=== PATIENT | female | born 1965 | race Hispanic/Latino ===

== ENCOUNTER 2021-05-29 03:15 | Emergency (ER) | payer BC ==
[~2021-05-29] VITALS: Ht 157.5 cm; Wt 83.9 kg
[2021-05-29] MEDS ORDERED: ORPHENADRINE CITRATE 30 MG/ML VIAL IM ONE (03:30)
[2021-05-29] MEDS ORDERED: DEXAMETHASONE SOD PHOS 10 MG/1 ML VIAL IM ONE (03:30)
[2021-05-29] MEDS ORDERED: ORPHENADRINE CITRATE 30 MG/ML VIAL ONE (03:39)
[2021-05-29] MEDS ORDERED: DEXAMETHASONE SOD PHOS 10 MG/1 ML VIAL ONE (03:39)
== END 2021-05-29 04:20 | disposition home or self-care (01) ==
LOC: ER 03:21
DX: M54.31 Sciatica, right side (principal); I25.10 Atherosclerotic heart disease of native coronary artery without angina pectoris; I25.2 Old myocardial infarction; Z95.5 Presence of coronary angioplasty implant and graft
CPT/HCPCS: 99282; J1100; J2360

== ENCOUNTER → 2022-10-24 | Outpatient (CLI) | payer BC ==
[2022-10-19 09:19] LABS: BASOPHILS % 0.4 % (0.0-1.0); EOSINOPHILS # (AUTO) 0.3 (0.0-0.4); EOSINOPHILS % 3.3 % (0.0-6.0); HEMATOCRIT 35.3 % (34.2-44.1); HEMOGLOBIN 11.1 g/dL (12.0-16.0); LYMPHOCYTES # (AUTO) 1.3 (1.0-3.2); LYMPHOCYTES % 16.8 % (18.0-39.1); MEAN CORPUSCULAR HEMOGLOBIN 31.7 pg (28-32); MEAN CORPUSCULAR HGB CONC 31.4 g/dL (31-35); MEAN CORPUSCULAR VOLUME 100.9 fL (81-99); MONOCYTES # (AUTO) 0.6 (0.2-0.8); MONOCYTES % 6.9 % (4.4-11.3); NEUTROPHILS # (AUTO) 5.8 (2.1-6.9); NEUTROPHILS % 72.3 % (38.7-80.0); PLATELET COUNT 338 x10e3/uL (140-360); RED CELL DISTRIBUTION WIDTH 13.6 % (11.7-14.4)
[~2022-10-24] MED LIST: ASPIRIN EC81 MG PO; CRESTOR10 MG PO; EFFIENT10 MG PO; LEVOTHYROXINE50 MCG PO; LISINOPRIL5 MG PO; METOPROLOL SUCC25 MG PO; WELLBUTRIN SR150 MG PO; ZETIA10 MG PO
== END ==
LOC: LAB 09:00 → EDSTATUS 11:00
PROVIDERS: ATTEND Internal Medicine Gastroenterology
DX: Z12.11 Encounter for screening for malignant neoplasm of colon (principal); R10.10 Upper abdominal pain, unspecified; R11.0 Nausea; R14.0 Abdominal distension (gaseous); R14.2 Eructation; Z53.8 Procedure and treatment not carried out for other reasons
CPT/HCPCS: 36415; 85025; 93005